=== PATIENT | male | born 1980 | race Caucasian/White ===

== ENCOUNTER 2023-06-05 09:26 | Day surgery (SDC) | payer OTHER ==
[~2023-06-05] VITALS: Ht 177.8 cm; Wt 124.3 kg
[~2023-06-05 09:26] MED LIST: CETI-24; MELO15TA28; OMEP40CA4 PO; VENL37.598
[2023-06-05] MEDS ORDERED: fentaNYL 100 MCG/2 ML INJECTION As Ordered ONE ×2 (10:24→11:25)
[2023-06-05] MEDS ORDERED: MIDAZOLAM INJ 2MG/2ML VIAL As Ordered ONE (10:24)
[2023-06-05] MEDS ORDERED: LIDOCAINE 2% 100MG/5ML SDV (FOR ANES.) As Ordered ONE (10:25)
[2023-06-05] MEDS ORDERED: propofoL 200 MG/20 ML VIAL As Ordered ONE (10:25)
[2023-06-05] MEDS ORDERED: ONDANSETRON 4MG 2ML VIAL As Ordered ONE (10:26)
[2023-06-05] MEDS ORDERED: METOCLOPRAMIDE INJ 10MG/2ML VIAL As Ordered ONE (10:26)
[2023-06-05] MEDS ORDERED: dexmedeTOMIDine (4MCG/ML)200MCG/50ML BTL (PRECEDEX) As Ordered ONE (10:28)
[2023-06-05] MEDS ORDERED: LR 1,000 ML IV SCH ×3 (11:05→12:30)
[2023-06-05] MEDS ORDERED: ACETAMINOPHEN 1000MG 100ML IV BAG As Ordered ONE (11:12)
[2023-06-05] MEDS ORDERED: ROCURONIUM BROMIDE 50MG/5ML VIAL As Ordered ONE (11:23)
[2023-06-05] MEDS ORDERED: SUGAMMADEX SODIUM 500 MG/5 ML VIAL (BRIDION) As Ordered ONE (11:23)
[2023-06-05] MEDS ORDERED: fentaNYL 100 MCG/2 ML INJECTION IV PRN (12:10)
[2023-06-05] MEDS ORDERED: ONDANSETRON 4MG 2ML VIAL IV PRN (12:10)
[2023-06-05] MEDS ORDERED: HYDROcodone/APAP LIQUID 7.5-325MG 15ML UDC (LORTAB ELIXIR) PO PRN (12:35)
[2023-06-05] MEDS: oxyCODONE 5MG TAB PO PRN ×2 (12:39→13:33)
[2023-06-05] MEDS: HYDROMORPHONE HCL 0.5 MG/ 0.5 ML SYRINGE IV PRN ×2 (12:40→12:47)
[2023-06-05 13:30] VITALS: BP 120/64; TEMP 97.4; O2SAT 95
== END 2023-06-05 13:47 | disposition home or self-care (01) ==
LOC: M SDC 09:26
PROVIDERS: ATTEND Otolaryngology
DX: J35.1 Hypertrophy of tonsils (principal)
CPT/HCPCS: 42826; 88302; J0131; J0665; J1100; J1170; J2250; J2405; J2765; J3010